=== PATIENT | male | born 1985 | race Caucasian/White ===

== ENCOUNTER 2020-01-13 22:46 | Emergency (ER) | payer SELFPAY ==
[~2020-01-13] VITALS: Ht 180.3 cm; Wt 68.0 kg
--- NOTE | 2020-01-13 22:48 | NUR ---
PT ZANDRA Allison FROM THE STREETS FOR ALTERED MENTAL STATUS. PER EMS REPORT, POSSIBLE METH USE. UPON ARRIVAL IN THE ED, PATIENT UNRESPONSIVE TO VERBAL AND MECHANICAL STIMULI. TO ER BED 8, NO PULSE, STARTED CPR AND BAG MASK VENTILATION, ER MD AND RT AT BEDSIDE. BAGGAGE SMASHERMICHAELA JOHNSTON AND RN DAMON OH AT BEDSIDE. PT CONNECTED TO THE [employer] AND POX. SEE CODE SHEET
--- NOTE | 2020-01-13 22:48 | NUR ---
RT NOTE Upon arrival to ER, code blue initiated @ 2248. Pt orally intubated via ETT #7.5, secured @ 24CM at the lipline @ 2256. Co2 detector color change confirmed. clear breath sounds heard bilaterally. After pt achieved ROSC, pt placed on mech vent on settings as charted per md orders. Pt sx'd for thick mod amt of yellow secretions. 2nd code blue initiated @ 2319 and pt @ 2323. Addendum: 01/14/20 at 0050 by CLARE MONTOYA RT Amended: Links added.
[2020-01-13] MEDS ORDERED: EPINEPHRINE (1:10,000) SYRINGE 1 MG/10 ML DISP.SYRIN IVP ONE (22:50)
[2020-01-13] MEDS ORDERED: FEE EMEERGENCY 1 MIN EA MC ONE (22:50)
[2020-01-13] MEDS ORDERED: NALOXONE PREFILLED SYRINGE 2 MG/2 ML SYRINGE ONE (22:51)
--- NOTE | 2020-01-13 22:56 | NUR ---
PT INTUBATED ET Tube:7.5 cm Depth:24 cm at the lip
[2020-01-13] MEDS ORDERED: EPINEPHRINE (1:1000) 1 MG/ML AMPUL ONE ×2 (23:08→23:10)
--- NOTE | 2020-01-13 23:19 | NUR ---
PT REASSESSED. NO PULSE. STARTED CPR. ER MD MADE AWARE. SEE CODE SHEET.
--- NOTE | 2020-01-13 23:23 | NUR ---
TIME OF : 2235
[2020-01-13] MEDS ORDERED: IV NS 0.9% 1,000 ML BAG IV ONE (23:30)
[2020-01-13] MEDS ORDERED: EPINEPHRINE (1:1000) 5 MG in IV NS 0.9% 245 ML IV PRN (23:30)
[2020-01-13 23:52] VITALS: BP 154/114
--- NOTE | 2020-01-13 23:52 | NUR ---
PER [facility], CANDIDATE [id number]
--- NOTE | 2020-01-14 00:08 | NUR ---
TUBE COREMAKER CASE # [id number]
== END 2020-01-14 02:10 ==
LOC: ER 22:49
DX: I46.9 Cardiac arrest, cause unspecified (principal)
CPT/HCPCS: 31500; 31720; 92950; 93005; 99291; J0171 ×3; J2310; J7030; J7060